=== PATIENT | male | born 1980 | race Asian ===

== ENCOUNTER 2019-02-18 08:42 | Emergency (ER) | payer MEDICAID ==
[~2019-02-18] VITALS: Ht 170.2 cm; Wt 105.0 kg
[2019-02-18 08:51] VITALS: BP 144/90
[2019-02-18] MEDS ORDERED: ibuprofen tablet 400 MG TABLET PO ONE (09:25)
[2019-02-18] MEDS ORDERED: ibuprofen 200mg tablet PO ONE (09:30)
== END 2019-02-18 11:13 | disposition home or self-care (01) ==
LOC: ER 08:43
DX: H61.23 Impacted cerumen, bilateral (principal); B34.9 Viral infection, unspecified; R05 Cough; R90.81 Abnormal echoencephalogram; R19.7 Diarrhea, unspecified; R09.3 Abnormal sputum; R53.83 Other fatigue
CPT/HCPCS: 71046; 87502; 87503; 99284

== ENCOUNTER 2020-07-31 04:12 | Emergency (ER) | payer MEDICAID, OTHER ==
[~2020-07-31] VITALS: Ht 172.7 cm; Wt 81.8 kg
[2020-07-31 04:15] VITALS: BP 0/0
--- NOTE | 2020-07-31 04:28 | NUR ---
0412 - Patient arrived by EMS, code blue, CPR in progress. IO to left tibia with VF wide open. Unknown down time. 4 mg of epi en route per EMS and one shock. 0415 - pulse check, v fib on monitor 0416 - shock 200 joules, CPR resumed 0417 - pulse check right femoral + 0418 - PEA, CPR resumed 0419 - 1 mg epi 0420 - pulse check -, CPR resumed 0421 - shock 200 joules, CPR resumed, 1 mg epi 0423 - pulse check -, CPR resumed 0425 - pulse check -, PEA, cardiac standstill, code called by MD White
[2020-07-31] MEDS ORDERED: epiNEPHrine 0.1mg/ml 10ml syringe ONE (09:00)
[2020-07-31] MEDS ORDERED: amiodarone 50MG/ML inj IV ONE (09:00)
== END 2020-07-31 06:00 | disposition expired ==
LOC: ER 04:13
DX: I49.01 Ventricular fibrillation (principal); I46.9 Cardiac arrest, cause unspecified
CPT/HCPCS: 92960; 99285; J0171